=== PATIENT | male | born 1965 | race Caucasian/White ===

== ENCOUNTER → 2019-09-16 09:50 | Outpatient (CLI) | payer BC ==
[2015-05-08 14:34] VITALS: BMI 25.0
--- NOTE | ~2019-09-16 | EC ---
PATIENT:TAI ORDONEZ DATE OF SERVICE: 09/16/19 SEX: M MEDICAL RECORD: [id number] DATE OF : 65 LOCATION:[facility] AGE OF PATIENT: 54 ADMISSION DATE: 09/16/19 REFERRING PHYSICIAN: INTERPRETING PHYSICIAN: MELISA SEYMOUR MD ECHOCARDIOGRAM REPORT ECHO CHARGES 4 ECHO COMPLETE Date: 09/16/19 CLINICAL DIAGNOSIS: MR H/O CAD/HTN/PACEMAKER PLACMENT ECHOCARDIOGRAPHIC MEASUREMENTS (adult normal given) AC root (d.<3.7cm) 3.8 cm LV Septum d (<1.2 cm> 1.2 cm Valve Excursion 2.0 cm LV Septum (systole) 1.9 cm Left Atria (s.<4.0cm> 5.1 cm LVPW d(<1.2cm) 1.2 cm RV (d.<2.3cm) 2.5 cm LVPW (sytole) 1.8 cm LV diastole(<5.6CM) 5.4 cm MV E-F(>70mm/sec) cm LV systole 3.5 cm LVOT Diameter 2.0 cm MV exc.(>10mm) cm Est.ejection fraction (50-75%) % DOPPLER: LVIT cm/sec A 97.0 cm/sec E 118 cm/sec LA cm/sec RVSP mmHg LVOT 89.0 cm/sec AOP1/2T m/s Asc. Ao 97.0 cm/sec RVOT 53.0 cm/sec RA cm/sec PA 87.0 cm/sec AV Gradient Peak 3.8 mmHg AV Mean 1.8 mmHg AV Area 2.9 cm MV Gradient Peak 4.9 mmHg MV Mean 2.2 mmHg MV Area cm COMMENTS: OP - HC Manager Physical: 1 ROSAURA LEATHA Dock Manager: 3 Dr. Mak TAPE# PACS Pericardial Effusion N DATE OF SERVICE: Adequate 2-D echo, Color-Flow and Spectral Doppler, and M-mode Borderline LVH. LV internal dimensions are normal. LV is mildly globally hypo with reduced EF, estimated EF 30% to 35%. Aortic valve sclerosis without stenosis by Doppler interrogation. Left atrium enlarged at 5.1 cm. Mitral valve shows no prolapse. Moderate MR. Right-sided chambers are grossly normal. Mild TR. ECHOCARDIOGRAM REPORT [id number] TAI ORDONEZ TRANSINT:[id number] Voice Confirmation ID: [id number] DOCUMENT ID: [id number] MELISA SEYMOUR MD CC: [id number] DICTATION DATE: 09/17/191456 DOUGHMAKER: 09/17/192000 DEP CLI 09/16/19 [place] [id number] [place] [id number]
[~2019-09-16 09:50] MED LIST: ASPIRIN81 MG PO; CECLOR250 MG PO; COREG 3.1253.125 MG PO; COREG12.5 MG PO; COREG6.25 MG PO; COZAAR50 MG PO; DIABETA5 MG PO; GLIMEPIRIDE4 MG PO; GLUCOPHAGE500 MG PO; HUMIRA20 MG/0.4 SQ; HYDROCODON-ACE1 EAC6; HYDROCODONE-APA1 TAB PO; LIPITOR40 MG PO; PLAVIX75 MG PO
== END | disposition home or self-care (01) ==
LOC: D.HCCECHO 09-02 10:30
PROVIDERS: ATTEND Internal Medicine Interventional Cardiology
DX: I25.10 Atherosclerotic heart disease of native coronary artery without angina pectoris (principal)